=== PATIENT | female | born 1985 | race Caucasian/White ===

== ENCOUNTER 2018-03-06 13:56 | Emergency (ER) | payer OTHER, MEDICAID ==
[~2018-03-06] VITALS: Ht 162.6 cm; Wt 83.9 kg
[2018-03-06 15:09] LABS: URINE BILIRUBIN NEGATIVE (Negative); URINE BLOOD 3+ (Negative); URINE CLARITY SL CLOUDY; URINE COLOR OTHER; URINE GLUCOSE-RANDOM NEGATIVE (Negative); URINE KETONES NEGATIVE (Negative); URINE NITRITE-REFLEX NEGATIVE (Negative); URINE PROTEIN 2+ (Negative); URINE UROBILINOGEN 0.2 E.U./dl (0.2-1.0)
[2018-03-06 15:13] LABS: URINE LEUKOCYTES-REFLEX 2+ (Negative)
[2018-03-06 15:21] VITALS: BP 138/48
[2018-03-06 15:28] LABS: SQUAMOUS >10 Many /LPF (0-3); URINE WBC-REFLEX >25 Many /HPF (0-5); WBC CLUMPS Few (None Seen)
[2018-03-06 15:29] LABS: CASTS None Seen /LPF (None Seen); MUCUS 0-3 Light strn/LPF (None Seen); URINE RBC >20 Many /HPF (0-2)
[2018-03-06 15:30] LABS: CRYSTALS None Seen /LPF (None Seen)
== END 2018-03-06 15:22 | disposition home or self-care (01) ==
LOC: M.ERS 13:56
PROVIDERS: Nurse Practitioner Family
DX: O72.2 Delayed and secondary postpartum hemorrhage (principal); Z37.0 Single live birth; Z91.040 Latex allergy status

== ENCOUNTER 2019-09-12 09:39 | Inpatient (IN) | payer OTHER, MEDICAID ==
[~2019-09-12] VITALS: Ht 162.6 cm; Wt 57.9 kg
--- NOTE | ~2019-09-12 | EEG ---
[address] [address] EEG STUDY REPORT Name: BRADY BECK Room: [address] IN M.R.#: [id number] Admission: 09/12/19 Attend Phys: Albino Blake Discharge: 09/13/19 Date of : 83 Report #: [id number] THIS REPORT FOR: //name// CC: [place] physician/PCP Darin Diaz DATE OF SERVICE: 09/12/2019 This patient is being evaluated for the possibility of seizure. EEG was done by placing the electrode by standard 10-20 system of electrode placement. Both referential and sequential montages were used for recording. Background activity in this patient's EEG is about 10 Hz and 30 microvolt. The patient went to sleep, that is associated with bilateral slowing and vertex sharp waves. Photic stimulation is unremarkable. Throughout the record, no active epileptiform activity was noticed. IMPRESSION: This patient's EEG is unremarkable. Thank you very much for this referral. By: 1421 1530Konstantin Herbert MD /nt
[2019-09-12 09:59] VITALS: BP 112/72
[2019-09-12 10:02] LABS: ABSOLUTE EOSINOPHILS 0.2 thou/uL (0.0-0.7); ABSOLUTE LYMPHOCYTES 2.5 thou/uL (0.8-5.3); ABSOLUTE MONOCYTES 0.4 thou/uL (0.0-1.2); ABSOLUTE NEUTROPHILS 3.3 thou/uL (1.6-8.1); BASOPHILS 0.4 %; EOSINOPHILS 2.3 %; HEMATOCRIT 43.3 % (37.0-47.0); HEMOGLOBIN 14.7 gm/dL (12.0-15.0); MCH 31.4 pg (26.0-34.0); MCV 92.1 fL (80.0-100.0); MONOCYTES 6.7 %; MPV 8.7 fl. (7.2-11.1); NUCLEATED RBCS 0 /100WBC; PLATELET COUNT* 189 thou/uL (150-400); POLYS 51.6 %; RDW-CV 12.3 % (10.5-14.5); WBC 6.4 thou/uL (4.0-11.0)
[2019-09-12 10:07] LABS: CALCIUM 8.3 mg/dL (8.5-10.1); POTASSIUM 3.7 mmol/L (3.5-5.1)
[2019-09-12 10:12] LABS: TOTAL BILIRUBIN 0.4 mg/dL (<0.1-1.0); TOTAL PROTEIN 7.4 g/dL (6.4-8.2)
[2019-09-12 13:37] VITALS: BP 120/70
--- NOTE | 2019-09-12 16:19 | EKG ---
[place] [address] ELECTROCARDIOGRAM REPORT Name: BRADY BECK Room: [address] ADM IN .R.#: [id number] Admission: 09/12/19 Attend Phys: Darin Diaz Discharge: Date of : 83 Date of Service: 09/12/19 0947 Report #: [id number] THIS REPORT FOR: //name// [facility] ED Test Date: 2019-09-12 Test Time: 09:47:35 Pat Name: BRADY BECK Department: Room: 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1985 Requested By: Lewis Kothari Order Number: [id number] MD: Jarrod Lewis Measurements Intervals Dexter Rate: 98 P: 62 AL: 120 QRS: 85 QRSD: 96 T: 55 QT: 370 QTc: 473 Interpretive Statements Sinus rhythm Minimal ST depression, anterolateral leads Borderline prolonged QT interval Baseline wander in lead(s) V3,V5,V6 No previous ECG available for comparison Electronically Signed On 09-12-2019 16:19:29 CDT by Jarrod Lewis [email or web address] <ELECTRONICALLY SIGNED> By: Jarrod Lewis MD, FAC 09/12/19 1619 0947 0947 Jarrod Lewis MD, [facility] /EPI
[2019-09-12 16:56] VITALS: BP 107/62
--- NOTE | 2019-09-12 17:22 | 2DMMODE ---
[place] [address] 2 D/M-MODE ECHOCARDIOGRAM Name: BRADY BECK Room: [address] IN [facility]#: [id number] Admission: 09/12/19 Attend Phys: Darin Diaz Discharge: Date of : 83 Date of Service: 09/12/19 1722 Report #: [id number] THIS REPORT FOR: cc: FAM - No family physician/PCP FAM - No family physician/PCP Jarrod Lewis MD [facility] ~ APPROVED REPORT Study performed: 09/12/2019 15:37:00 EXAM: Comprehensive 2D, Doppler, and color-flow Echocardiogram Patient Location: In-Patient Room #: [facility] Status: routine BSA: 1.63 HR: 84 bpm BP: 120/70 mmHg Rhythm: NSR Other Information Study Quality: Good Indications SEIZURES 2D Dimensions IVSd: 8.67 (7-11mm) LVOT Diam: 19.90 (18-24mm) LVDd: 34.13 mm PWd: 7.69 (7-11mm) Ascending Ao: 26.60 (22-36mm) LVDs: 20.31 (25-40mm) Aortic Root: 27.62 mm Volumes Left Atrial Volume (Systole) LA ESV Index: 14.90 mL/m2 Aortic Valve AoV Peak Mick.: 1.20 m/s AO Peak Gr.: 5.74 mmHg LVOT Max P.39 mmHg AO Mean Gr.: 3.46 mmHg LVOT Mean P.13 mmHg LVOT Max V: 1.05 m/s AO V2 VTI: 22.46 cm LVOT Mean V: 0.68 m/s PRIYANK (VTI): 2.65 cm2 LVOT V1 VTI: 19.15 [place] [address] 2 D/M-MODE ECHOCARDIOGRAM Name: BRADY BECK Room: [address] IN [facility].#: [id number] Admission: 09/12/19 Attend Phys: Darin Diaz Discharge: Date of : 83 Date of Service: 09/12/19 1722 Report #: [id number] Mitral Valve E/A Ratio: 1.06 MV Decel. Time: 269.35 ms MV E Max Mick.: 0.82 m/s MV PHT: 78.11 ms MVA (PHT): 2.82 cm2 TDI E/Lateral E': 5.86 E/Medial E': 4.82 Medial E' Mick.: 0.17 m/s Lateral E' Mick.: 0.14 m/s Pulmonary Valve PV Peak Mick.: 0.93 m/s PV Peak Gr.: 3.45 mmHg Tricuspid Valve RAP Estimate: 5.00 mmHg TR Peak Gr.: 18.09 mmHg RVSP: 23.00 mmHg PA Pressure: 23.00 mmHg Left Ventricle The left ventricle is normal size. There is normal LV segmental wall motion. There is normal left ventricular wall thickness. Left ventricular systolic function is normal. LVEF is 60-65%. The left ventricular diastolic function is normal. Right Ventricle The right ventricle is normal size. The right ventricular systolic function is normal. Atria The left atrium size is normal. The right atrium size is normal. Aortic Valve The aortic valve is normal in structure. No aortic regurgitation is present. There is no aortic valvular stenosis. Mitral Valve The mitral valve is normal in structure. There is no mitral valve regurgitation noted. No evidence of mitral valve stenosis. Tricuspid Valve The tricuspid valve is normal in structure. Mild tricuspid regurgitation[place] [address] 2 D/M-MODE ECHOCARDIOGRAM Name: BRADY BECK Room: [address] [place] [facility]#: [id number] Admission: 09/12/19 Attend Phys: Darin Diaz Discharge: Date of : 83 Date of Service: 09/12/19 1722 Report #: [id number] Pulmonic Valve The pulmonary valve is normal in structure. There is no pulmonic valvular regurgitation. Great Vessels The aortic root is normal in size. IVC is normal in size and collapses >50% with inspiration. Pericardium There is no pericardial effusion. <Conclusion> The left ventricle is normal size. There is normal left ventricular wall thickness. Left ventricular systolic function is normal. LVEF is 60-65%. The left ventricular diastolic function is normal. Mild tricuspid regurgitation. No pulmonary hypertension. IVC is normal in size and collapses >50% with inspiration. <ELECTRONICALLY SIGNED> By: Jarrod Lewis MD, FACC 09/12/191721 21 21 Jarrod Lewis MD, FACC /INF
[2019-09-12 20:00] VITALS: BP 111/70
[2019-09-13] VITALS: BP 134/68
[2019-09-13 03:58] LABS: HEMATOCRIT 40.7 % (37.0-47.0); HEMOGLOBIN 13.9 gm/dL (12.0-15.0); MCH 30.9 pg (26.0-34.0); MCV 90.8 fL (80.0-100.0); MPV 8.5 fl. (7.2-11.1); NUCLEATED RBCS 0 /100WBC; PLATELET COUNT* 191 thou/uL (150-400); RBC 4.48 mil/uL (4.20-5.00); RDW-CV 12.2 % (10.5-14.5); WBC 12.5 thou/uL (4.0-11.0)
[2019-09-13 04:00] VITALS: BP 116/74
[2019-09-13 04:14] LABS: CALCIUM 8.4 mg/dL (8.5-10.1); CREATININE 0.8 mg/dL (0.6-1.3); POTASSIUM 3.8 mmol/L (3.5-5.1)
[2019-09-13 06:09] LABS: ABSOLUTE LYMPHOCYTES 0.8 thou/uL (0.8-5.3); ABSOLUTE MONOCYTES 0.5 thou/uL (0.0-1.2); ABSOLUTE NEUTROPHILS 11.3 thou/uL (1.6-8.1); ANISOCYTOSIS 1+; PLATELET ESTIMATE ADEQUATE; POIKILOCYTOSIS 1+
[2019-09-13 08:20] VITALS: BP 127/72
[2019-09-13] MEDS ORDERED: EFFEXOR XR37.5 MG PO (08:45)
[2019-09-13 14:22] VITALS: BP 127/72
== END 2019-09-13 14:52 | disposition home or self-care (01) | DRG 101 ==
LOC: M.ERS 09:39 → M.TBA-ER 10:53 → M.2W 14:00
PROVIDERS: Family Medicine; ADMIT Internal Medicine; ATTEND Internal Medicine
DX: R56.9 Unspecified convulsions (principal); I10 Essential (primary) hypertension; F41.1 Generalized anxiety disorder; Z91.040 Latex allergy status; Z80.3 Family history of malignant neoplasm of breast; Z83.3 Family history of diabetes mellitus; Z90.710 Acquired absence of both cervix and uterus; Z87.891 Personal history of nicotine dependence; Z03.818 Encounter for observation for suspected exposure to other biological agents ruled out

== ENCOUNTER 2020-02-19 14:12 | Emergency (ER) | payer OTHER, MEDICAID ==
[~2020-02-19] VITALS: Ht 162.6 cm; Wt 57.6 kg
[~2020-02-19 14:12] MED LIST: EFFEXOR XR37.5 MG PO
[2020-02-19 14:36] LABS: ABSOLUTE EOSINOPHILS 0.1 thou/uL (0.0-0.7); ABSOLUTE LYMPHOCYTES 1.9 thou/uL (0.8-5.3); ABSOLUTE MONOCYTES 0.4 thou/uL (0.0-1.2); ABSOLUTE NEUTROPHILS 4.1 thou/uL (1.6-8.1); BASOPHILS 0.5 %; EOSINOPHILS 1.4 %; HEMATOCRIT 41.8 % (37.0-47.0); HEMOGLOBIN 13.9 gm/dL (12.0-15.0); LYMPHOCYTES 29.1 %; MCH 30.6 pg (26.0-34.0); MCHC 33.3 g/dL (28.0-37.0); MCV 91.9 fL (80.0-100.0); MONOCYTES 5.9 %; MPV 8.3 fl. (7.2-11.1); NUCLEATED RBCS 0 /100WBC; PLATELET COUNT* 191 thou/uL (150-400); POLYS 63.1 %; RBC 4.55 mil/uL (4.20-5.00); RDW-CV 12.5 % (10.5-14.5); WBC 6.6 thou/uL (4.0-11.0)
[2020-02-19 14:51] LABS: CALCIUM 8.8 mg/dL (8.5-10.1); CREATININE 0.9 mg/dL (0.6-1.3); POTASSIUM 3.4 mmol/L (3.5-5.1)
[2020-02-19 14:55] LABS: ALBUMIN 3.9 g/dL (3.4-5.0); TOTAL BILIRUBIN 0.3 mg/dL (<0.1-1.0); TOTAL PROTEIN 7.2 g/dL (6.4-8.2)
[2020-02-19] MEDS ORDERED: ATIVAN1 M1 PO (15:21)
[2020-02-19 15:33] VITALS: BP 111/72
== END 2020-02-19 15:33 | disposition home or self-care (01) ==
LOC: M.ERS 14:12
PROVIDERS: Family Medicine
DX: R56.9 Unspecified convulsions (principal); I10 Essential (primary) hypertension; Z90.710 Acquired absence of both cervix and uterus; Z91.040 Latex allergy status